=== PATIENT | female | born 1990 | race Caucasian/White ===

== ENCOUNTER 2021-08-09 09:09 | Inpatient (IN) | payer OTHER ==
[2021-08-09] MEDS ORDERED: Nalbuphine 10 MG/1 ML Vial IVPUSH PRN (10:42)
[2021-08-09] MEDS ORDERED: Ondansetron 4 MG/2 ML SDV IVPUSH PRN (10:42)
[2021-08-09] MEDS ORDERED: Oxytocin/Lactated Ringers 10 UNIT/1,000 ML BAG IV SCH (10:45)
[2021-08-09] MEDS: Lactated Ringers 1,000 ML IV SCH ×2 (12:50→18:52)
[2021-08-09] MEDS ORDERED: fentaNYL 100 MCG/2 ML SDV EPIDUR PRN (13:12)
[2021-08-09] MEDS ORDERED: diphenhydrAMINE 50 MG/ML SDV IVPUSH PRN (13:12)
[2021-08-09] MEDS ORDERED: ePHEDrine 50 MG/ML SDV IVPUSH PRN (13:12)
[2021-08-09] MEDS ORDERED: Bupivacaine/fentaNYL/NS 100 ML Bag EPIDUR PRN (13:12)
[2021-08-09] MEDS ORDERED: Lidocaine 1.5% with EPINEPHrine 1:200,000 5 ML Amp ONE (14:00)
[2021-08-09] MEDS ORDERED: Witch Hazel Medicated Pads 40/Jar TOP PRN (17:28)
[2021-08-09] MEDS ORDERED: Docusate Sodium 100 MG Cap PO PRN (17:28)
[2021-08-09] MEDS ORDERED: Benzocaine/Menthol 20%-0.5% Spray 78 GM Cannister TOP PRN (17:28)
[2021-08-09] MEDS: Ibuprofen 600 MG Tab PO PRN (20:30)
[2021-08-09] MEDS ORDERED: Sodium Chloride 0.9% 10 ML Syringe FLUSH SCH (21:00)
[2021-08-09] MEDS ORDERED: Calcium Gluconate 10% 1 GM/10 ML SDV IV PRN (21:14)
[2021-08-09] MEDS ORDERED: Magnesium Sulfate/Water 4 GM in Premix Bag 1 BAG IV ONE (21:14)
[2021-08-09] MEDS ORDERED: Magnesium Sulfate/Water 2 GM in Premix Bag 1 BAG IV ONE (21:14)
[2021-08-09] MEDS ORDERED: Labetalol 100 MG/20 ML MDV IVPUSH STA (21:20)
[2021-08-09] MEDS ORDERED: Magnesium Sulfate/Water 50 ML ONE (21:26)
[2021-08-09] MEDS ORDERED: Lactated Ringers 1,000 ML IV SCH (21:30)
[2021-08-09] MEDS: Magnesium Sulfate/Water 40 GM/1,000 ML BAG IV SCH (21:47)
[2021-08-10] MEDS: Ibuprofen 600 MG Tab PO PRN ×3 (02:29→18:53)
[2021-08-10] MEDS: Acetaminophen 325 MG Tab PO PRN ×2 (08:29→21:46)
[2021-08-10] MEDS ORDERED: Sodium Chloride 0.65% Nasal Spray 45 ML Bottle NAS PRN (15:44)
[2021-08-10] MEDS: NIFEdipine 30 MG Tab.ER PO SCH (17:03)
[2021-08-10] MEDS: Magnesium Sulfate/Water 40 GM/1,000 ML BAG IV SCH (17:31)
[2021-08-11] MEDS: Ibuprofen 600 MG Tab PO PRN ×2 (02:12→09:01)
[2021-08-11] MEDS: NIFEdipine 30 MG Tab.ER PO SCH (09:01)
== END 2021-08-11 15:15 | disposition home or self-care (01) | DRG 807 ==
LOC: JD.OBCHECK 09:09 → JD.OB 09:14 → JD.OBCHECK 12:08 → JD.OB 12:08 → OBSVTOIN 16:38 → JD.OB 16:39
PROVIDERS: ADMIT Obstetrics & Gynecology; ATTEND Obstetrics & Gynecology
PROC: 10E0XZZ Delivery of Products of Conception, External Approach (ICD-10-PCS; principal; 2021-08-09)
PROC: 0KQM0ZZ Repair Perineum Muscle, Open Approach (ICD-10-PCS; 2021-08-09)
PROC: 10907ZC Drainage of Amniotic Fluid, Therapeutic from Products of Conception, Via Natural or Artificial Opening (ICD-10-PCS; 2021-08-09)
PROC: 3E0R3BZ Introduction of Anesthetic Agent into Spinal Canal, Percutaneous Approach (ICD-10-PCS; 2021-08-09)
PROC: 00HU33Z Insertion of Infusion Device into Spinal Canal, Percutaneous Approach (ICD-10-PCS; 2021-08-09)
DX: O14.14 Severe pre-eclampsia complicating childbirth (principal); Z37.0 Single live birth; O77.0 Labor and delivery complicated by meconium in amniotic fluid; O70.1 Second degree perineal laceration during delivery; Z3A.38 38 weeks gestation of pregnancy; Z88.0 Allergy status to penicillin; Z87.891 Personal history of nicotine dependence
CPT/HCPCS: 01967; 36415; 51702; 59025; 59409; 82565; 82570; 84156; 84450; 84460; 85025; 86592; 86850; 86900; 86901; A9270-GY; J2590; J3010; J3475; J3490; J7120

== ENCOUNTER 2023-04-27 07:29 | Inpatient (IN) | payer OTHER ==
[2023-04-27] MEDS ORDERED: Sodium Chloride 0.9% 10 ML Syringe FLUSH PRN (08:01)
[2023-04-27] MEDS ORDERED: Misoprostol 25 MCG (1/4 of 100 MCG) Tab VAG ONE (08:03)
[2023-04-27] MEDS ORDERED: Lactated Ringers 1,000 ML IV SCH (08:15)
[2023-04-27 08:35] LABS: HEMATOCRIT 39.6 % (37.0-47.0); HEMOGLOBIN 13.4 gm/dl (12.0-16.0); MEAN CORPUSCULAR HGB CONC 33.8 g/dl (32.0-36.0); MEAN CORPUSCULAR VOLUME 85.7 fl (83.0-99.0); MEAN PLATELET VOLUME 10.7 fl (9.4-12.3); PLATELET COUNT,PLT 244 K/mm3 (150-400); RED BLOOD CELL COUNT 4.62 M/mm3 (4.10-5.30); WHITE BLOOD CELL COUNT,WBC 7.73 K/mm3 (3.9-11.3)
[2023-04-27] MEDS ORDERED: Acetaminophen 325 MG Tab PO ONE (13:19)
[2023-04-27] MEDS ORDERED: Oxytocin/Lactated Ringers 10 UNIT/1,000 ML BAG IV SCH (13:30)
[2023-04-27] MEDS ORDERED: Nalbuphine HCl 10 MG/ 1ML Amp IVPUSH PRN (18:19)
[2023-04-27] MEDS ORDERED: Lidocaine 1% 50 ML MDV ONE (19:45)
[2023-04-27] MEDS ORDERED: Lidocaine 1% 50 ML MDV INJECT STA (19:47)
[2023-04-27] MEDS ORDERED: Witch Hazel Medicated Pads 40/Jar TOP PRN (20:08)
[2023-04-27] MEDS ORDERED: Benzocaine/Menthol 20%-0.5% Spray 78 GM Cannister TOP PRN (20:08)
[2023-04-27] MEDS: Ibuprofen 600 MG Tab PO PRN (22:48)
[2023-04-28] MEDS: Acetaminophen 325 MG Tab PO PRN ×3 (01:38→15:09)
[2023-04-28] MEDS: Sodium Chloride 0.9% 10 ML Syringe FLUSH SCH (02:08)
[2023-04-28] MEDS: Ibuprofen 600 MG Tab PO PRN ×3 (04:18→18:35)
== END 2023-04-28 21:18 | disposition home or self-care (01) | DRG 807 ==
LOC: JD.OB 07:30 → OBSVTOIN 07:30 → JD.OB 20:14
PROVIDERS: ADMIT Family Medicine; ATTEND Family Medicine
PROC: 10E0XZZ Delivery of Products of Conception, External Approach (ICD-10-PCS; principal; 2023-04-27)
PROC: 0KQM0ZZ Repair Perineum Muscle, Open Approach (ICD-10-PCS; 2023-04-27)
PROC: 3E033VJ Introduction of Other Hormone into Peripheral Vein, Percutaneous Approach (ICD-10-PCS; 2023-04-27)
PROC: 3E0P7VZ Introduction of Hormone into Female Reproductive, Via Natural or Artificial Opening (ICD-10-PCS; 2023-04-27)
DX: O24.420 Gestational diabetes mellitus in childbirth, diet controlled (principal); Z37.0 Single live birth; O75.89 Other specified complications of labor and delivery; R76.8 Other specified abnormal immunological findings in serum; O42.02 Full-term premature rupture of membranes, onset of labor within 24 hours of rupture; O70.1 Second degree perineal laceration during delivery; Z3A.39 39 weeks gestation of pregnancy; Z88.0 Allergy status to penicillin; Z79.82 Long term (current) use of aspirin; Z86.16 Personal history of COVID-19; Z98.890 Other specified postprocedural states
CPT/HCPCS: 36415; 59025; 59409; 82947; 85027; 86592; A9270-GY; J2001; J2300; J2590; J7120